=== PATIENT | male | born 1945 | race Caucasian/White ===

== ENCOUNTER 2017-02-05 05:10 | Day surgery (SDC) | payer MEDICARE ==
--- NOTE | 2017-02-02 11:31 | HP ---
PATIENT: IGNACIA WEBSTER MEDICAL RECORD: [id number] ACCOUNT: [id number] LOCATION:.[facility] : 49 ADMISSION DATE: 02/05/17 HISTORY AND PHYSICAL EXAMINATION IGNACIA Au (71yo, M) ID# [id number]. Date/Time01/09/2017 10:85EFYRE1947[facility] Dept.NPP_[facility] ClinicProviderEDBARRY PEREA MDInsuranceMed Primary: [employer] - GOLD (MEDICARE REPLACEMENT/ADVANTAGE - HMO) Insurance # : [id number] Referring Provider Name : ZAIRE CAO Employer Name : RETIRED Prescription: ARGSDIR - Member is eligible. Chief Complaint pulse generator end-of-life evaluate for ICD generator change Patient's Care Team Referring Provider (): ZAIRE CAO: [address] [place] [address] , [address], [place] [address], , Patient's Pharmacies [facility] ([facility]): [address], [facility] [place] [place] [address], , Vitals BP:110/62 sitting R arm 01/09/2017 11:05 amBP Cuff Size:adult 01/09/2017 11:05 amHR:60,reg 01/09/2017 11:05 amHt:5 ft 11 in 01/09/2017 10:56 amWt:194 lbs 01/09/2017 11:06 amNotes:had CABG and AICD placed in [facility] and has lived here for two years 01/09/2017 11:06 amBMI:27.1 01/09/2017 11:06 amAllergies Reviewed Allergies PENICILLINSMedications Reviewed Medications ASPIRIN LOW DOSE 81MG EC10/13/16 filledSunEdison Health Systemsatorvastatin 80 mg tablet Take 1 tablet(s) every day by oral route.12/23/16 filledCC video Systemscarvedilol 3.125 mg tablet Take 1 tablet(s) twice a day by oral route.12/23/16 filledCC video SystemsCETIRIZINE HCL 10MG08/02/16 filleddot life, ltd.Fluzone Quad 7125-7857 60 mcg (15 mcg x 4)/0.5 mL IM xytolbless77/20/16 [facility] institutedot life, ltd.lisinopril 5 mg tablet Take 1 tablet(s) every day by oral route.12/23/16 filleddot life, ltd.LORATADINE 10MG10/13/16 filledClearsky [facility] Hospital Of AvondaleYatango MobileNitrostat 0.4 mg sublingual aslwpg42/16/15 [facility] l[facility].OYSTER CALCIUM VITAMIN D110/29/15 filledClearsky [facility] Of AvondaleYatango MobilePrevnar 13 (PF) 0.5 mL intramuscular nduqokm25/22/15 filleddot life, ltd.PULSE KLCOLXXO10/17/17 [facility] CenterYat[facility] MobileSALINE NASAL SPRAY12/04/15 [facility] Center[facility] MobileProblems Reviewed Problems Implanted defibrillator generator failure - Onset: 01/09/2017 Increased frequency of urination Benign prostatic hyperplasia Automatic implantable cardiac defibrillator in situ - Onset: 01/07/2017 Conduction disorder of the heart Coronary arteriosclerosis Hyperlipidemia Family History Discussed Family History HISTORY AND PHYSICAL [id number] IGNACIA WEBSTER Father- Heart disease ( age: 72) - sudden deathBrother- Heart disease - sudden deathBrother- Carcinoma of prostateSocial History Discussed Social History Cardiology Family history of heart disease?: Y Smoking Status: Never smoker High Cholesterol: Y High blood pressure: Y Exercise level: Moderate Alcohol intake: Moderate Marital status: Surgical History Reviewed Surgical History Nasal surgery procedure Cabg vein four - 2007 - preceeded by stenting Past Medical History Discussed Past Medical History Bladder Problems: Y - increased urinary frequency Chest Pain: Y Coronary Artery Disease: Y - CABG Heart Disease: Y - cad Heart s tents: Y High Blood Pressure: Y Hyperlipidemia: Y Shortness of Breath: Y Notes: cardiac arrest 2007 Documents for Discussion N/A Screening None recorded. HPI Dysrhythmia Reported by patient. Frequency: none Limitations: none Alleviating Factors: controlled on current medication automatic implantable cardio defibrillator end-of-life ROS Patient reports no fever, no night sweats, no significant weight gain, no significant weight loss, and no exercise intolerance. He reports no dry eyes, no irritation, and no vision change. He reports no difficulty hearing and no ear pain. He reports no frequent nosebleeds and no nose/sinus problems. He reports no sore throat, no bleeding gums, no snoring, no dry mouth , no mouth ulcers, no oral abnormalities, and no teeth problems. He reports no chest pain, no arm pain on exertion, no shortness of breath when walking, no shortness of breath when lying down, no palpitations, and no known heart murmur. He reports no cough , no wheezing, no shortness of breath, and no coughing up blood. He reports no abdominal pain, no vomiting, normal appetite, no diarrhea, not vomiting blood, no nausea, and no constipation. He reports no incontinence, no difficulty urinating, no hematuria, and no increased frequency. He reports no muscle aches, no muscle weakness, no arthralgias/joint pain, no back pain, and no swelling in the extremities. He reports no abnormal mole, no jaundice, and no rashes. He reports no loss of consciousness, HISTORY AND PHYSICAL [id number] WILTGENLYNNIGNACIA no weakn e ss, no numbness, no seizures, no dizziness, and no headaches. He reports no depression, no sleep disturbances, feeling safe in relationship, and no alcohol abuse. He reports no fatigue. He reports no swollen glands and no bruising. He reports no runny nos e, no sinus pressure, no itching, no hives, and no frequent sneezing. ROS as noted in the HPI Physical Exam Patient is a 71-year-old male. Constitutional: General Appearance well nourished and developed and healthy-appearing. Level of Distress NAD. Ambulation ambulating normally. Cardiovascular: Apical Impulse not displaced or no thrill; AICD left subclavian area. Heart Auscultation normal s1 and s2; no murmurs, rubs, or gallops; and RRR. Arterial Pulses no abdominal aorta bruits, femoral bruits, or popli teal bruits and 2+ bilateral, carotid 2+ bilateral, femoral 2+ bilateral, popliteal 2+ bilateral, and dorsalis pedis 2+ bilateral. Edema no edema or varicosities. Lungs: Repiratory Effort no dyspnea. Percussion no hyperresonance or dullness or flatness. A uscultation no wheezing, rhonchi, or rales / crackles and breathing sounds normal, good air movement, and CTA except as noted. Abdomen: Bowl Sounds normal. Inspection and Palpation no tenderness, guarding, masses, or rebound tenderness and soft and non-di stended. Liver non-tender and no hepatomegaly. Spleen non-tender and no splenomegaly. Hernia none palpable. Musculoskeletal System: Gait And Stance normal gait and stance. Digits and Nails normal nails and no cyanosis. Neurologic: Cranial Nerves grossly intact. Reflexes DTRs 2+ bilaterally throughout. Sensation grossly intact. Lymph Nodes: Lymph Nodes no cervical LAD, supraclavicular LAD, axillary LAD, or inguinal LAD. Eyes: Lids and Conjunctivae no discharge or pallor and non-injected. Pupils PERRLA. Cornea grossly intact. EOM EOMI. Lens clear. Sclerae non-icteric. Neck: Neck no masses, enlarged lymph nodes, or carotid bruits and supple and trachea midline. Thyroid no enlargement or nodules and non-tender. Skin: Inspection and Palpation no rash, lesions, ulcers, jaundice, or abnormal nevi. Assessment / Plan AICD battery end-of-life 1. Pacemaker battery depletion T82.111A: Breakdown (mechanical) of cardiac pulse generator (battery), initial encounter Discussion Notes I discuss Mr. Webster's disease process with him in detail as well as the AICD function. We discussed AICD generator exchange and the expected benefits and risk which included bleeding, infection, stroke, and . He understands all of the above and wishes to proceed with plan jatinder procedure after January 31 he will be out of town for the next few weeks. He understands the possible consequences of delay. He HISTORY AND PHYSICAL [id number] IGNACIA WEBSTER accepts and will be scheduled after January 31 MARIBELL PEREA MD at 1131 CC: [id number] DICTATION DATE: 01/09/17 1045 MATERIAL ASSEMBLER: TAYLOR 01/31/17 1304 [facility] [address] [place] [address]
[~2017-02-05] VITALS: Ht 180.3 cm; Wt 88.2 kg
--- NOTE | ~2017-02-05 | OP ---
PATIENT NAME: IGNACIA WEBSTER MEDICAL RECORD: [id number] :49 LOCATION:D.OPS ADMISSION DATE: SURGEON: REYMUNDO PEREA MD DATE OF OPERATION: 02/05/2017 SURGEON: Reymundo Perea MD ANESTHESIA: General, Dr. Murcia. OPERATION PERFORMED: 1. AICD pulse generator exchange. 2. Pocket revision. PREOPERATIVE DIAGNOSIS: Cardiomyopathy, pulse generator end of life. POSTOPERATIVE DIAGNOSIS: Cardiomyopathy, pulse generator end of life. INDICATION FOR OPERATION: Pulse generator end of life. FINDINGS OF THE OPERATION: The explanted pulse generator [employer], product number [id number]. Newly implanted pulse generator [employer] model number [id number], serial number [id number]. Chronic leads satisfactory. ESTIMATED BLOOD LOSS: Less than 5 cc. DESCRIPTION OF PROCEDURE: After informed consent, adequate preoperative medication evaluation, the patient was brought to the operating room, placed on the table in the supine position. After induction of general endotracheal anesthesia and application of appropriate monitoring devices, the left chest and neck were prepped and draped in a sterile field, utilizing Betadine scrub, alcohol, and Betadine solution. A Betadine-impregnated drape was also used, 1% lidocaine was infiltrated in the skin and pulse generator pocket. An incision was made. Dissection carried down to the pulse generator pocket was opened and the pulse generator was explanted and the leads mobilized. The device was removed and the leads cleaned with a celiotomy sponge. The pacemaker pocket was expanded inferiorly and medially due to the pacemaker pocket contraction and dimensions of the new pulse generator. The leads were then connected to the pulse generator and the AICD placed to the pocket. The function was appropriate. The pocket was irrigated. Instrument count and sponge count were correct times 2. Pocket was closed in layers utilizing 3-0 Vicryl on deep subcutaneous tissue and the pulse generator pocket, 3-0 Vicryl on subcutaneous tissue and skin approximated with 5-0 subcuticular Monocryl. Sterile dressings were applied. The patient tolerated the procedure well and was transferred to postanesthesia recovery in satisfactory condition. TRANSINT:[id number] Voice Confirmation ID: [id number] DOCUMENT ID: [id number] OPERATIVE REPORT [id number] MANISHLYNN GARCIAREYMUNDO DYE MD CC: [id number] DICTATION DATE: 02/05/17 0828 SECURITY MONITOR: 02/05/17 1424 [facility] 02/05/17 [place] [id number] [facility] [place] [address]
[2017-02-05 06:05] LABS: APTT 27.4 SECONDS (22.8-39.4); INR 0.99 (0.85-1.17); PROTIME 12.9 SECONDS (11.6-15.0)
[2017-02-05 06:12] LABS: HEMATOCRIT 47.6 % (42.0-54.0); MCH 30.7 pg (26.0-34.0); MCHC 33.6 g/dL (31.0-37.0); MCV 91.4 fL (80.0-100.0); MEAN PLATELET VOLUME 8.8 fL (7.4-10.4); RBC 5.21 10x6/uL (4.20-6.10); RDW 12.9 % (11.5-14.5); WBC 6.6 10x3/uL (4.8-10.8)
[2017-02-05 06:15] LABS: CALC OSMOLALITY 274 mosm/kg (275-300); CALCIUM 8.8 mg/dL (8.5-10.1); CARBON DIOXIDE 29.3 mmol/L (21.0-32.0); CHLORIDE - SERUM 105 mmol/L (98-107); GLUCOSE 106 mg/dL (74-106); POTASSIUM - SERUM 4.2 mmol/L (3.5-5.1); SODIUM 137 mmol/L (136-145); UREA NITROGEN 15 mg/dL (7-18); eGFR NON AFRICAN AMERICAN 79 mL/min (90-120)
[2017-02-05] MEDS ORDERED: BAYER CHEWABLE81 MG PO (06:29)
[2017-02-05] MEDS ORDERED: CLARITIN 10 MG10 MG PO (06:29)
[2017-02-05] MEDS ORDERED: LIPITOR80 MG PO (06:30)
[2017-02-05] MEDS ORDERED: CALCI-CHEW1 TAB.CHEW PO (06:30)
[2017-02-05] MEDS ORDERED: LISINOPRIL5 MG PO (06:30)
[2017-02-05] MEDS ORDERED: COREG 3.1253.125 MG PO (06:30)
[2017-02-05 06:38] VITALS: BP 114/70; Ht 180.3 cm; Wt 88.2 kg
--- NOTE | 2017-02-05 09:47 | NUR ---
0900-RECEIVED PT FROM PACU AWAKE AND ALERT, LEFT UPPER CHEST DRESSING CDI WITHOUT ANY DRAINAGE NOTED. AT BEDSIDE. CALL LIGHT IN REACH. WILL CONTINUE TO MONITOR 0945-PT TELEMETRY SINUS ALEKSANDR AT 53
--- NOTE | 2017-02-05 09:53 | NUR ---
0950-REPORT GIVEN TO FANNY BARDALES
--- NOTE | 2017-02-05 13:57 | NUR ---
1120 AWAKE & ALERT, GIVEN DISCHARGE INSTRUCTIONS, MED REC & RTC APPT. PT VOICED UNDERSTANDING. ADVISED TO HOLD TODAY'S AM DOSES OF LISINOPRIL & CARVEDILOL & RESUME PM DOSE OF CARVEDILOL. PT VOICED UNDERSTANDING. TO PRIVATE CAR PER WHEEL CHAIR BY VOLUNTEER. HOME WITH MRS. WEBSTER. Chris RUTLEDGE R.N.
== END 2017-02-05 11:20 | disposition home or self-care (01) ==
LOC: D.OPS 05:10
PROVIDERS: Internal Medicine Cardiovascular Disease
DX: Z45.02 Encounter for adjustment and management of automatic implantable cardiac defibrillator (principal); I42.9 Cardiomyopathy, unspecified